=== PATIENT | female | born 1990 | race Caucasian/White ===

== ENCOUNTER 2016-11-05 16:05 | Emergency (ER) | payer OTHER ==
[2016-11-05 17:38] VITALS: BP 132/97
--- NOTE | 2016-11-05 18:16 | UC ---
Complaint Female HPI - HPI Summary HPI Summary: ONSET OF DYSURIA AND URINARY FREQUENCY YESTERDAY MORNING. ALSO HAS SLIGHT RIGHT SIDED BACK PAIN. NO FEVER. NO N/V. - History Of Current Complaint Chief Complaint: UCGU Stated Complaint: URINARY ISSUE Time Seen by Provider: 11/05/16 18:13 Hx Obtained From: Patient Hx Last Menstrual Period: 10 days ago Onset/Duration: Gradual Onset, Lasting Hours, Still Present Timing: Constant Severity Initially: Moderate Severity Currently: Moderate Pain Intensity: 5 Pain Scale Used: 0-10 Numeric Character: Burning Aggravating Factor(s): Urination Alleviating Factor(s): Nothing Associated Signs And Symptoms: Positive: Back Pain. Negative: Fever, Vaginal Bleeding/Discharge, Vaginal Discharge, Nausea, Vomiting(# Of Episodes =) - Allergies/Home Medications Allergies/Adverse Reactions: Allergies Allergy/AdvReac Type Severity Reaction Status Date / Time No Known Allergies Allergy Verified 11/05/16 17:39 PMH/Surg Hx/FS Hx/Imm Hx Endocrine History Of: Reports: Dyslipidemia Cardiovascular History Of: Reports: Cardiac Disorders - high cholesterol - Surgical History Surgical History: Yes Surgery Procedure, Year, and Place: CYST REMOVAL FROM HEAD 09/06/14 - Family History Known Family History: Negative: Hypertension - Social History Alcohol Use: None Substance Use Type: None Smoking Status (MU): Never Smoked Tobacco - Immunization History Most Recent Tetanus Shot: 2010 Review of Systems Constitutional: Negative Respiratory: Negative Cardiovascular: Negative Gastrointestinal: Negative Genitourinary: Dysuria, Frequency, Urgency All Other Systems Reviewed And Are Negative: Yes Physical Exam Triage Information Reviewed: Yes Appearance: Well-Appearing, No Pain Distress, Well-Nourished Vital Signs: Initial Vital Signs Temp 98.2 F 11/05/16 17:35 Pulse 105 11/05/16 17:35 Resp 18 11/05/16 17:35 BP 132/97 11/05/16 17:35 Pulse Ox 100 11/05/16 17:35 Vital Signs Reviewed: Yes Eyes: Positive: Conjunctiva Clear ENT: Positive: Hearing grossly normal Neck: Positive: Supple Respiratory: Positive: No respiratory distress, No accessory muscle use Cardiovascular: Positive: Pulses Normal Abdomen Description: Positive: Soft, Other: - SUPRAPUBIC TTP. Negative: CVA Tenderness (R), CVA Tenderness (L), Distended, Guarding Musculoskeletal: Positive: No Edema Neurological: Positive: Alert Psychological: Positive: Age Appropriate Behavior Diagnostics - Laboratory Diagnostic Studies Completed/Ordered: URINE DIP SP. GR. 1.010, 1+ LEUKS, TRACE BLOOD Complaint Female Dx - Differential Dx/Diagnosis Provider Diagnoses: UTI Discharge - Discharge Plan Condition: Stable Disposition: HOME Prescriptions: Sulfamethox/Trimethoprim DS* [Bactrim DS 800/160 TAB*] 1 tab PO BID #10 tab Patient Education Materials: Urinary Tract Infection in Women (ED) Referrals: Alen SIERRA,Jah Sanchez [Primary Care Provider] - If Needed
== END 2016-11-05 18:22 | disposition home or self-care (01) ==
LOC: UCEAST 16:05
DX: N39.0 Urinary tract infection, site not specified (principal); E78.5 Hyperlipidemia, unspecified
CPT/HCPCS: 81003; 87086; 99212; G0463

== ENCOUNTER 2016-12-28 09:04 | Emergency (ER) | payer OTHER ==
[2016-12-28 09:29] VITALS: BP 146/89
--- NOTE | 2016-12-28 10:43 | UC ---
Complaint Female HPI - HPI Summary HPI Summary: compalint of bilaeral flank pain that started 2 days ago painful urination for the last 3 days increase in frequncy and urgency of urination deneis fever and chills took some ibuprofen last night without relief took azo yesterday with some relief frequent UTI- everyother month kidney infection 1x year - History Of Current Complaint Chief Complaint: UCGU Stated Complaint: LOWER BACK PAIN Time Seen by Provider: 12/28/16 10:37 Hx Obtained From: Patient Hx Last Menstrual Period: - Allergies/Home Medications Allergies/Adverse Reactions: Allergies Allergy/AdvReac Type Severity Reaction Status Date / Time No Known Allergies Allergy Verified 11/05/16 17:39 PMH/Surg Hx/FS Hx/Imm Hx Previously Healthy: Yes Endocrine History Of: Reports: Dyslipidemia Denies: Diabetes, Thyroid Disease Cardiovascular History Of: Reports: Cardiac Disorders - high cholesterol Denies: Hypertension Respiratory History Of: Denies: COPD, Asthma GI/ History Of: Denies: Ulcer - Surgical History Surgical History: Yes Surgery Procedure, Year, and Place: CYST REMOVAL FROM HEAD 09/06/14 - Family History Known Family History: Negative: Cardiac Disease, Hypertension, Diabetes - Social History Occupation: Employed Full-time Alcohol Use: None Substance Use Type: None Smoking Status (MU): Never Smoked Tobacco - Immunization History Most Recent Tetanus Shot: 2010 Review of Systems Constitutional: Negative Skin: Negative Eyes: Negative ENT: Negative Respiratory: Negative Cardiovascular: Negative Gastrointestinal: Negative Genitourinary: Dysuria, Hematuria, Frequency, Urgency Motor: Negative Neurovascular: Negative Musculoskeletal: Negative Neurological: Negative Psychological: Negative All Other Systems Reviewed And Are Negative: Yes Physical Exam Triage Information Reviewed: Yes Appearance: No Pain Distress, Well-Nourished, Ill-Appearing Vital Signs: Initial Vital Signs Temp 98 F 12/28/16 09:27 Pulse 116 12/28/16 09:27 Resp 20 12/28/16 09:27 BP 146/89 12/28/16 09:27 Pulse Ox 100 12/28/16 09:27 Vital Signs Reviewed: Yes Eyes: Positive: Conjunctiva Clear ENT: Positive: Pharynx normal, TMs normal Dental Exam: Normal Neck: Positive: No Lymphadenopathy Respiratory: Positive: Lungs clear, Normal breath sounds, No respiratory distress Cardiovascular: Positive: RRR, No Murmur, Pulses Normal Abdomen Description: Positive: Nontender, No Organomegaly, Soft, CVA Tenderness (R). Negative: CVA Tenderness (L), Distended, Guarding Bowel Sounds: Positive: Present Musculoskeletal Exam: Normal Neurological Exam: Normal Psychological Exam: Normal Skin Exam: Normal Complaint Female Dx - Course Course Of Treatment: exam completed. will treat for UTI/pyleonephritis with urology followup. pt tachycardic but refuses IV hydration- needs to get home d/ t children. discussed at length signs and symptoms of when to seek emergent care if symptoms worsen, fever and possibility of kidney stones and pt states understanding - Differential Dx/Diagnosis Differential Diagnosis/HQI/PQRI: Ureteral Stone, Urinary Tract Infection, Other - pyleonephritis Provider Diagnoses: UTI. elevated blood pressure Discharge - Discharge Plan Condition: Stable Disposition: HOME Prescriptions: Ciprofloxacin TAB* [Cipro 500 MG TAB*] 500 mg PO BID #14 tab Phenazopyridine TAB* [Pyridium 100 mg TAB*] 100 mg PO TID #6 tab Patient Education Materials: Urinary Tract Infection in Women (ED), Kidney Infection (ED) Referrals: Alen SIERRA,Jah Sanchez [Primary Care Provider] - Silverio Covington MD [Medical Doctor] - Additional Instructions: Please start antibiotic and pyridium as directed Increase fluids and rest Take acetaminophen or ibuprofen for fever or pain Please call Urologist for further evaluation of frequent urinary tract infections Please review your discharge instructions. If your symptoms do not improve , you have an increase in pain or you develop a fever please go to the emergency room for further evaluation and treatment. Your blood pressure is elevated. Please contact your primary care provider within 1 -4 weeks for further evaluation.
== END 2016-12-28 10:56 | disposition home or self-care (01) ==
LOC: UCEAST 09:04
DX: N39.0 Urinary tract infection, site not specified (principal); B96.89 Other specified bacterial agents as the cause of diseases classified elsewhere; R03.0 Elevated blood-pressure reading, without diagnosis of hypertension
CPT/HCPCS: 81003; 84702; 87077; 87086; 87186; 99212; G0463

== ENCOUNTER 2018-09-10 07:14 | Day surgery (SDC) | payer OTHER ==
[~2018-09-10 07:14] MED LIST: Buffered Lidocaine 1% SYRIN* 1 ML/SYRINGE INTRADERM ONE; Dexamethasone IV* 4 MG/ML 1 ML (4 MG) IV SLOW PU ONE; Famotidine IV* 10 MG/ML 2 ML (20 mg) IV ONE; Lactated Ringers 1000 ML Bag* 1,000 ML IV SCH
[2018-09-10] MEDS ORDERED: Famotidine IV* 10 MG/ML 2 ML (20 mg) ONE (07:53)
[2018-09-10] MEDS ORDERED: ceFAZolin 2 GM PREMIX in ORs 2 GM/50 ML BAG IVPB ONE (07:54)
[2018-09-10] MEDS ORDERED: Dexamethasone IV* 4 MG/ML 1 ML (4 MG) ONE (07:54)
[2018-09-10] MEDS ORDERED: Rocuronium* 10 MG/ML VIAL ONE (08:09)
[2018-09-10] MEDS ORDERED: Midazolam* 1 MG/ML 2 ML VIAL (2 MG) ONE (08:09)
[2018-09-10] MEDS ORDERED: fentaNYL* 50 MCG/ML 5 ML VIAL (250 MCG VIAL) ONE (08:09)
[2018-09-10] MEDS ORDERED: Lidocaine 2% PF * 5 ML VIAL ONE (08:10)
[2018-09-10] MEDS ORDERED: Propofol* 10 MG/ML 20 ML BTL ONE ×2 (08:10→09:34)
[2018-09-10 08:42] LABS: Hematocrit 43 % (35-47); Hemoglobin 14.8 g/dl (12.0-16.0); Mean Corpuscular HGB Conc 34 g/dl (31-36); Mean Corpuscular Hemoglobin 31 pg (27-31); Mean Corpuscular Volume 89 fL (80-97); Mean Platelet Volume 7.6 fL (7.4-10.4); Platelet Count 175 10^3/ul (150-450); Red Cell Distribution Width 13 % (10.5-15)
[2018-09-10] MEDS ORDERED: Naloxone* 0.4 MG/ML 1 ML VIAL IV PRN (08:42)
[2018-09-10] MEDS ORDERED: fentaNYL* 50 MCG/ML 2 ML VIAL (100 MCG VIAL) IV PRN (08:42)
[2018-09-10] MEDS ORDERED: HYDROcodone/ACETAMIN 5-325 MG* 1 TAB PO PRN (08:42)
[2018-09-10] MEDS ORDERED: DiMENhydriNATE IV* 50 MG/ML VIAL IV PUSH PRN (08:42)
[2018-09-10] MEDS ORDERED: PROCHLORPERAZINE INJ 5 MG/ML 2 ML VIAL IV PRN (08:42)
[2018-09-10] MEDS ORDERED: Ketorolac INJ* 30 MG/ML 1 ML VIAL IV PRN (08:42)
[2018-09-10] MEDS ORDERED: Acetaminophen TAB* 325 MG PO PRN (08:42)
[2018-09-10] MEDS ORDERED: Bupivacaine 0.5% W/EPI SDV* 30 ML VIAL ONE (08:46)
[2018-09-10] MEDS ORDERED: Ondansetron INJ* 2 MG/ML VIAL ONE (09:57)
[2018-09-10] MEDS ORDERED: Ketorolac INJ* 30 MG/ML 1 ML VIAL ONE (10:28)
[2018-09-10 11:31] VITALS: BP 118/82
--- NOTE | 2018-09-10 12:05 | OP ---
CC: Dr. Whitt * DATE OF OPERATION: 09/10/18 - [facility] DATE OF : 88 SURGEON: Dr. Hemphill. CAN CLOSING MACHINE TENDER: Dr. Whitt. ANESTHESIOLOGIST: Dr. Cobb. ANESTHESIA: General endotracheal anesthesia. PRE-OP DIAGNOSIS: Multiparity, desires permanent sterilization. POST-OP DIAGNOSIS: Multiparity, desires permanent sterilization and including adhesions of omentum to the anterior abdominal wall. OPERATIVE PROCEDURE: ESTIMATED BLOOD LOSS: Minimal, less than 20 cc. URINE OUTPUT: 200 cc clear urine. FINDINGS: Midline uterus, normal appearing ovaries bilaterally, normal appearing fallopian tubes bilaterally, normal appearing appendix. There were adhesions of the omentum to the anterior abdominal wall low in the pelvis to the right fallopian tube and also to the anterior abdominal wall in the region of the umbilicus. Normal appearing liver edge. Those are the findings. COMPLICATIONS: None. COUNTS: Sponge, lap, and needle count were x2 and the patient was brought to recovery room, in stable condition. DESCRIPTION OF PROCEDURE: The patient was taken to the operating room. When general anesthesia was found to be adequate, the patient was prepped and draped in the usual sterile fashion in the dorsal supine position. A Velazquez catheter had been placed under sterile conditions. Time-out was performed. A 1 cm infraumbilical incision was made in the skin after Marcaine was instilled. The fascia was identified, grasped between 2 Casey clamps, and an incision was made. The fascia was tagged with a 0-Vicryl. The blunt trocar was placed. Correct placement was confirmed by the laparoscope. The abdomen was insufflated. A 5 mm skin incision was made in the previous Pfannenstiel skin incision in the midline and the 5 mm trocar was placed under direct visualization. The abdomen and pelvis were examined with the above findings noted. Dr. Whitt lysed the omental adhesions. Attention was then turned to the patient's right fallopian tube which was followed out to the fimbriated end and appeared normal. The fallopian tubes was cauterized in 4 separate locations with the Kleppinger cautery, watching the needle go down to zero. Attention was then turned to the patient's left fallopian tube which was carried out to the fimbriated end and cauterized in 4 separate locations, also watching the needle to see that the cautery went down to zero. The appendix was identified and examined and found to be normal. There was a thin adhesion to the appendix which was also lysed. The 5 mm trocar and sleeve were removed under direct visualization. The laparoscope was removed. The infraumbilical fascia was closed using 0 Vicryl. No defect was palpated. The skin was closed with 4-0 Vicryl and the Velazquez catheter was removed. Clear urine was noted. The patient was brought to recovery room. [id number]/[facility] #: [id number] MIRIAM
--- NOTE | 2018-09-10 12:16 | OP ---
CC: Barrington Hemphill MD * DATE OF OPERATION: 09/10/18 - [facility] DATE OF : 88 SURGEON: Thor Whitt MD CO-SURGEON: Dr. Hemphill. ANESTHESIOLOGIST: Dr. Cobb. ANESTHESIA: General endotracheal. PRE-OP DIAGNOSES: Multiparity and right lower quadrant pain. POST-OP DIAGNOSES: Multiparity and right lower quadrant pain and intraperitoneal adhesions. OPERATIVE PROCEDURE: Laparoscopic lysis of adhesions. ESTIMATED BLOOD LOSS: Minimal. IV FLUIDS: Crystalloid. SPECIMENS: None. DRAINS: None. COMPLICATIONS: None. COUNTS: Instrument, needle, and sponge counts were correct. INDICATIONS: The patient is a 28-year-old female who presented for elective sterilization and was taken to the operating room by Dr. Hemphill on 09/10/18. During the time of the laparoscopy, she was noted to have intraperitoneal adhesions in the right quadrant and to the anterior abdominal wall involving the omentum. I was asked to perform intraoperative lysis of adhesions. DESCRIPTION OF PROCEDURE: For the placement of the trocars, please refer to Dr. Hemphill's note. Inspection of the right lower quadrant revealed a tongue of omentum adherent into the area anterior to the right adnexa obscuring its view. A LigaSure was used to divide the adhesions and in addition, additional adhesion of omentum to the anterior abdominal wall at the umbilical site was also lysed. Due to the patient's history of right lower quadrant abdominal pain, inspection of the appendix and cecum were performed and this did appear normal, although there was a single band-like adhesion to the appendix, which was lysed sharply. Inspection also of the right upper quadrant was performed. The liver appeared to be mildly fatty infiltrated. The gallbladder appeared to be without any inflammatory changes or stones. No obvious gross pathology was noted in the large and small intestine. The patient was returned to the care of Dr. Hemphill and the remaining portion of the procedure and closure is dictated in her note. [id number]/[facility] #: [id number] MTDD
== END 2018-09-10 11:36 | disposition home or self-care (01) ==
LOC: OR 07:14
PROVIDERS: ATTEND Obstetrics & Gynecology
DX: Z30.2 Encounter for sterilization (principal); K66.0 Peritoneal adhesions (postprocedural) (postinfection); R10.2 Pelvic and perineal pain; N94.9 Unspecified condition associated with female genital organs and menstrual cycle; K21.9 Gastro-esophageal reflux disease without esophagitis; E78.5 Hyperlipidemia, unspecified
CPT/HCPCS: 36415; 81025; 85027; 86850; 86900; 86901; J0690; J1100; J1885; J2250; J2405; J2704; J3010

== ENCOUNTER → 2018-09-15 17:53 | Emergency (ER) | payer OTHER ==
[~2018-09-15 17:53] MED LIST changes: -Buffered Lidocaine 1% SYRIN* 1 ML/SYRINGE INTRADERM ONE; -Dexamethasone IV* 4 MG/ML 1 ML (4 MG) IV SLOW PU ONE; -Famotidine IV* 10 MG/ML 2 ML (20 mg) IV ONE; +Hydrocortisone SUPP* 25 MG SUPP (2.5%) PR ONE; -Lactated Ringers 1000 ML Bag* 1,000 ML IV SCH
--- OUTSIDE RECORDS SUMMARY | 2018-09-15 18:16 | XMS REPORT | Continuity of Care Document ---
:1990 External Reference #:[id number] Author Name Oanh Michelle Care Team Providers Name Role Phone Steffany Quiñones MD Primary Care Physician Unavailable Payers Type Date Identification Numbers Payment Provider Subscriber Policy Number: [id number] [employer] Yao Sheth PayID: [id number] [address] [place] [address] Expires: 2015 Policy Number: [id number] [employer] Jasmyne Goyal Group Number: [id number] [address] PayID: [id number] [place] [address] Advance Directives Description No Information Available Problems Date Description Provider Status Onset: 02/23/2017 Pure hypercholesterolemia Rene Rocha NP Active Family History Date Family Member(s) Problem(s) Comments Father Heart valve issues, pacemaker Mother Bladder Cancer Mother Hypercholesterolemia Siblings 2 2 Borthers; one quadraplegic s/p MVA First Brother quadriplegic Maternal Grandmother Cancer Social History Type Date Description Comments Sex Unknown Marital Status Significant Other Lives With Boyfriend Lives With Children Occupation [employer] ETOH Use Denies alcohol use Tobacco Use Start: Unknown Patient has never smoked Recreational Drug Use Denies Drug Use Smoking Status Reviewed: 08/26/18 Patient has never smoked Exercise Type/Frequency Exercises sporadically Allergies, Adverse Reactions, Alerts Date Description Reaction Status Severity Comments 02/20/2017 Sulfamethoxazole / Nausea and Vomiting Active Moderate Trimethoprim 09/17/2012 NKDA Inactive Medications Medication Date Status Form Strength Qnty SIG Indications Ordering Provider Fluconazole 08/26/ Active Tablets 150mg 5tabs one tablet B37.3 Dvorah 2019 by vivian Hemphill MD every other day, then one tablet per week Alyacen 07/20/ Active Tablets 1-35mg-mcg 28tabs Take 1 Rene 2018 Tablet By WILMA Rocha Mouth Every Day Coq10 05/14/ Active Capsules 50mg 1 by mouth Cori 2018 every day Reanna N.P. Rosuvastatin 07/28/ Active Tablets 20mg 30tabs Take 1 Rene Calcium 2017 Tablet By WILMA Rocha Mouth Daily Omeprazole 07/23/ Active Capsules 20mg 30caps Take One R07.[address] Capsule By WILMA Rocha Mouth Every Day Vascepa 02/20/ Active Capsules 1gm 120cap take 2 Rene 2017 s capsules WILMA Rocha by mouth twice a day Oralone 02/20/ Active Paste 0.1% 5gm Thin layer K12.0 Rene 2016 of paste WILMA Rocha to affected areas 2-4 times daily Fluconazole 07/12/ Hx Tablets 150mg 2tabs one by Rene 2017 - mouth december WILMA Rocha 07/19/ repeat in 2017 3 days as needed Ortho-Novum 02/04/ Hx Tablets 1-35mg-mcg 28tabs Take 1 Rene (28) 2017 - Tablet By WILMA Rocha 07/20/ Mouth 2018 Every Day Fluconazole 11/11/ Hx Tablets 150mg 2tabs one by Rene 2017 - mouth december WILMA Rocha 11/18/ repeat in 2017 3 days as needed Gemfibrozil 07/28/ Hx Tablets 600mg 60tabs take 1 Rene 2016 - tablet by WILMA Rocha 07/30/ mouth two 2017 times daily Rosuvastatin 02/20/ Hx Tablets 40mg 30tabs take 1 Rene Calcium 2016 - tablet by WILMA Rocha 07/28/ mouth at 2017 bedtime 00/ Hx Unknown Vitamin 0000 - 2016 Cyclafem 35 / Hx Tablets 1-35mg-mcg 28tabs take 1 Rene 0000 - tablet by WILMA Rocha 02/04/ mouth 2018 every day Immunizations Description No Information Available Vital Signs Date Vital Result Comment 08/26/2018 3:35pm Height 65 inches 5'5" Weight 170.00 lb Heart Rate 98 /min BP Systolic 138 mmHg BP Diastolic 90 mmHg O2 % BldC Oximetry 98 % BMI (Body Mass Index) 28.3 kg/m2 Last Menstrual Period [id number] 06/07/2018 9:54am Height 65 inches 5'5" Weight 164.00 lb Heart Rate 84 /min BP Systolic 129 mmHg BP Diastolic 80 mmHg Body Temperature 97.9 F O2 % BldC Oximetry 99 % BMI (Body Mass Index) 27.3 kg/m2 05/14/2018 3:03pm Height 65 inches 5'5" Weight 166.00 lb Heart Rate 89 /min BP Systolic 102 mmHg BP Diastolic 64 mmHg Body Temperature 97.9 F O2 % BldC Oximetry 99 % BMI (Body Mass Index) 27.6 kg/m2 07/23/2017 10:27am Height 65 inches 5'5" Weight 171.00 lb Heart Rate 91 /min BP Systolic Sitting 112 mmHg BP Diastolic Sitting 74 mmHg Body Temperature 98.1 F O2 % BldC Oximetry 98 % BMI (Body Mass Index) 28.5 kg/m2 02/20/2017 11:39am Height 65 inches 5'5" Weight 174.00 lb Heart Rate 100 /min BP Systolic Sitting 118 mmHg BP Diastolic Sitting 86 mmHg O2 % BldC Oximetry 98 % BMI (Body Mass Index) 29.0 kg/m2 09/17/2012 9:59am Heart Rate 102 /min BP Systolic Sitting 130 mmHg BP Diastolic Sitting 78 mmHg Respiratory Rate 16 /min Results Test Date Facility Test Result H/L Range Note Laboratory test 08/26/2018 [facility] Cytology <pending> finding [address] [place] [address] [phone] Laboratory test 08/26/2018 [facility] Gardnerella/Yea <pending> finding [address]: [place] [address] [phone] Laboratory test 08/26/2018 [facility] Test negative finding Urine Laboratory test 05/14/2018 [facility] Vitamin B12 329 pg/mL N 180-[address] [place] [address] [phone] TSH (Thyroid Stim Horm) 0.84 mcIU/mL N 0.34-5.60 Magnesium 2.0 mg/dL N 1.9-2.7 Lipid Profile 11/06/2017 [facility] Triglycerides 623 mg/dL 2 (Trig/Chol/HDL) [address] [place] [address] [phone] Cholesterol 205 mg/dL 3 HDL Cholesterol 39.5 mg/dL 4 LDL Cholesterol (SEE NOTE) mg/dL 5 Liver Function 11/06/2017 [facility] Total Protein 6.7 g/dL N 6.4-8.9 Panel [address] [place] [address] [phone] Albumin 4.4 g/dL N 3.2-5.2 Globulin 2.3 g/dL N 2-4 Albumin/Globulin Ratio 1.9 N 1-3 Total Bilirubin 0.40 mg/dL N 0.2-1.0 Direct Bilirubin 0.00 mg/dL Low 0.03-0.18 Alkaline Phosphatase 48 U/L N 34-104 Alt 27 U/L N 7-52 Ast 24 U/L N 13-39 Laboratory test 11/06/2017 [facility] LDL Cholesterol 67 mg/dL 6 finding [address] [place] [address] [phone] Lipid Profile 07/24/2017 [facility] Triglycerides 359 mg/dL 7 (Trig/Chol/HDL) [address] [place] [address] [phone] Cholesterol 134 mg/dL 8 HDL Cholesterol 38.3 mg/dL 9 LDL Cholesterol 24 mg/dL 10 Laboratory test 07/24/2017 [facility] Troponin-I (TnI) 0.00 ng/ mL <0.04 11 finding [address] [place] [address] [phone] TSH (Thyroid Stim Horm) 1.94 mcIU/mL N 0.34-5.60 12 Comp Metabolic Panel 07/24/2017 [facility] Sodium 139 mmol/L N 133-145 [address] [place] [address] [phone] Chloride 104 mmol/L N 101-111 Co2 Carbon Dioxide 23 mmol/L N 22-32 Glucose 92 mg/dL N 70-100 Blood Urea Nitrogen 12 mg/dL N 6-24 Creatinine 0.72 mg/dL N 0.51-0.95 BUN/Creatinine Ratio 16.7 N 8-20 Calcium 9.1 mg/dL N 8.6-10.3 Total Protein 6.9 g/dL N 6.4-8.9 Albumin 4.4 g/dL N 3.2-5.2 Globulin 2.5 g/dL N 2-4 Albumin/Globulin Ratio 1.8 N 1-3 Total Bilirubin 0.60 mg/dL N 0.2-1.0 Alkaline Phosphatase 37 U/L N 34-104 Alt 22 U/L N 7-52 Egfr Non- 97.2 >60 Egfr 125.0 >60 13 Potassium TNP mmol/L 3.5-5.0 14 Anion Gap 12 mmol/L High 2-11 Ast TNP U/L 13-39 15 CBC Auto Diff 07/24/2017 [facility] White Blood 4.5 10^3/uL N 3.5-10.[address] [place] [address] [phone] Red Blood Count 4.61 10^6/uL N 4.0-5.4 Hemoglobin 14.1 g/dL N 12.0-16.0 Hematocrit 42 % N 35-47 Mean Corpuscular Volume 90 fL N 80-97 Mean Corpuscular Hemoglobin 31 pg N 27-31 Mean Corpuscular HGB Conc 34 g/dL N 31-36 Red Cell Distribution Width 13 % N 10.5-15 Platelet Count 174 10^3/uL N 150-450 Mean Platelet Volume 9 um3 N 7.4-10.4 Abs Neutrophils 2.5 10^3/uL N 1.5-7.7 Abs Lymphocytes 1.5 10^3/uL N 1.0-4.8 Abs Monocytes 0.4 10^3/uL N 0-0.8 Abs Eosinophils 0 10^3/uL N 0-0.6 Abs Basophils 0 10^3/uL N 0-0.2 Abs Nucleated RBC 0.01 10^3/uL Granulocyte % 55.4 % N 38-83 Lymphocyte % 34.4 % N 25-47 Monocyte % 8.7 % N 1-9 Eosinophil % 0.8 % N 0-6 Basophil % 0.7 % N 0-2 Nucleated Red Blood Cells % 0.1 Laboratory test 06/02/2017 [facility] LDL Cholesterol 26 mg/dL N [address] [place] [address] [phone] Lipid Profile 03/02/2017 [facility] Triglycerides 675 mg/dL N 17 (Trig/Chol/HDL) [address] [place] [address] [phone] Cholesterol 187 mg/dL N 18 HDL Cholesterol 33.9 mg/dL N 19 LDL Cholesterol (SEE NOTE) mg/dL N 20 Comp Metabolic Panel 03/02/2017 [facility] Sodium 134 mmol/L N 133-[address] [place] [address] [phone] Potassium 4.2 mmol/L N 3.5-5.0 Chloride 100 mmol/L Low 101-111 Co2 Carbon Dioxide 26 mmol/L N 22-32 Anion Gap 8 mmol/L N 2-11 Glucose 95 mg/dL N 70-100 Blood Urea Nitrogen 10 mg/dL N 6-24 Creatinine 0.67 mg/dL N 0.51-0.95 BUN/Creatinine Ratio 14.9 N 8-20 Calcium 9.1 mg/dL N 8.6-10.3 Total Protein 6.7 g/dL N 6.4-8.9 Albumin 4.1 g/dL N 3.2-5.2 Globulin 2.6 g/dL N 2-4 Albumin/Globulin Ratio 1.6 N 1-3 Total Bilirubin 0.70 mg/dL N 0.2-1.0 Alkaline Phosphatase 41 U/L N 34-104 Alt 28 U/L N 7-52 Ast 25 U/L N 13-39 Egfr Non- 105.6 N >60 Egfr 135.8 N >60 21 Laboratory test 03/02/2017 [facility] LDL Cholesterol 47 mg/dL N [address] [place] [address] [phone] 1 Normal Range 180 to 914 Indeterminate Range 145 to 180 Deficient Range <145 2 Desirable: <150 Borderline High: 150-199 High: 200-499 Very High: >500 3 Desirable: <200 Borderline High: 200-239 High: >239 4 Low: <40 Desirable: 40-60 High: >60 5 Unable to calculate LDL as triglyceride is > 400 6 Desirable: <100 Near Optimal: 100-129 Borderline High: 130-159 High: 160-189 Very High: >189 7 Desirable: <150 Borderline High: 150-199 High: 200-499 Very High: >500 8 Desirable: <200 Borderline High: 200-239 High: >239 9 Low: <40 Desirable: 40-60 High: >60 10 Desirable: <100 Near Optimal: 100-129 Borderline High: 130-159 High: 160-189 Very High: >189 11 FASTING 10 HOUR 12 FASTING 10 HOUR 13 Because ethnic data is not always readily available, this report includes an eGFR for both -Americans and non- Americans. The National Kidney Disease Education Program (NKDEP) does not endorse the use of the MDRD equation for patients that are not between the ages of 18 and 70, are , have extremes of body size, muscle mass, or nutritional status, or are non- or non-. According to the National Kidney Foundation, irrespective of diagnosis, the stage of the disease is based on the level of kidney function: Stage Description GFR(mL/min/1.73 m(2)) 1 Kidney damage with normal or decreased GFR 90 2 Kidney damage with mild decrease in GFR 60-89 3 Moderate decrease in GFR 30-59 4 Severe decrease in GFR 15-29 5 Kidney failure <15 (or dialysis) 14 Specimen Hemolyzed. Result may not be valid. Unable to report test result due to hemolysis. 15 Unable to report test result due to hemolysis. 16 Desirable: <100 Near Optimal: 100-129 Borderline High: 130-159 High: 160-189 Very High: >189 17 Desirable <150 Borderline high 150-199 High 200-499 Very High >500 18 Desirable <200 Borderline high 200-239 High >239 19 Low <40 Desirable: 40-60 High: >60 20 Unable to calculate LDL as triglyceride is > 400 21 Because ethnic data is not always readily available, this report includes an eGFR for both -Americans and non- Americans. The National Kidney Disease Education Program (NKDEP) does not endorse the use of the MDRD equation for patients that are not between the ages of 18 and 70, are , have extremes of body size, muscle mass, or nutritional status, or are non- or non-. According to the National Kidney Foundation, irrespective of diagnosis, the stage of the disease is based on the level of kidney function: Stage Description GFR(mL/min/1.73 m(2)) 1 Kidney damage with normal or decreased GFR 90 2 Kidney damage with mild decrease in GFR 60-89 3 Moderate decrease in GFR 30-59 4 Severe decrease in GFR 15-29 5 Kidney failure <15 (or dialysis) 22 Desirable: <100 mg/dL Near Optimal: 100-129 mg/dL Borderline High: 130-159 mg/dL High: 160-189 mg/dL Very High: >189 mg/dL Procedures Description No Information Available Encounters Type Date Location Provider Dx Diagnosis Office Visit 06/07/2018 [facility] Cori Ottonilesh, G43.909 Migraine, unsp , not 10:00a Medicine - N.P. intractable, [place] without status migrainosus N77.1 Vaginitis, vulvitis and vulvovaginitis in dis classd elswhr Office Visit 05/14/2018 3:00p [facility] Cori Reanna, G43.909 Migraine, unsp, Medicine - N.P. not intractable, [place] without status migrainosus Office Visit 07/23/2017 10:20a [facility] Rene Rocha NP R07.89 Other chest pain Medicine Brendan Z13.220 Encounter for screening for lipoid disorders Office Visit 02/20/2017 [facility] Rene E78.00 Pure hypercholesterolemia, 11:00a Amberly Rocha NP unspecified [place] K12.0 Recurrent oral aphthae Office Visit 09/17/2012 10:00a [facility]ly Ly, 784.0 [facility] Kush V22.2 State Incidental Normal Plan of Treatment Future Appointment(s):09/17/2018 4:00 pm - Bar[place] Hemphill MD at [facility]08/26/2018 - [place] Hemphill MDZ01.411 Encounter for gynecological examination (general) (routine)Comments:Pap sentFollow up:Will call service desk agent to schedule Laparoscopic tubal gjxygiceL39.3 Candidiasis of vulva and vaginaNew Medication:Fluconazole 150 mg - one tablet by mouth every other day, then one tablet per weekNew Labs:HCG , Ordered: 08/26/18TSH (Thyroid Stim Horm) , Ordered: 08/26/18Hemoglobin A1c (Glyco HGB), Ordered: 08/26/18Comments:Affirm sentR10.2 Pelvic and perineal painFollow up:Please schedule f/u appt after sonogram
[2018-09-15 19:51] LABS: ABS Basophils 0.1 10^3/ul (0-0.2); ABS Eosinophils 0.1 10^3/ul (0-0.6); ABS Lymphocytes 1.6 10^3/ul (1.0-4.8); ABS Monocytes 0.7 10^3/ul (0-0.8); ABS Neutrophils 6.1 10^3/ul (1.5-7.7); ABS Nucleated RBC 0 10^3/ul; Eosinophil % 0.9 %; Hematocrit 45 % (35-47); Hemoglobin 15.8 g/dl (12.0-16.0); Lymphocyte % 19.2 %; Mean Corpuscular HGB Conc 35 g/dl (31-36); Mean Corpuscular Hemoglobin 31 pg (27-31); Mean Corpuscular Volume 89 fL (80-97); Mean Platelet Volume 7.5 fL (7.4-10.4); Nucleated Red Blood Cells % 0.1; Platelet Count 202 10^3/ul (150-450); Red Blood Count 5.12 10^6/ul (4.00-5.40); Red Cell Distribution Width 13 % (10.5-15); White Blood Count 8.5 10^3/ul (3.5-10.8)
--- NOTE | 2018-09-15 19:58 | ED ---
GI/ HPI - HPI Summary HPI Summary: This patient is a 28 year old F presenting to [facility] accompanied by family with a chief complaint of hematochezia that occurred once prior to arrival. The patient rates the pain 5/10 in severity. Symptoms aggravated by nothing. Symptoms alleviated by nothing. Patient denies nausea, vomiting, and fever. Patient states she had a bilateral laparoscopic tubal ligation on 09/10/2017. - History of Current Complaint Chief Complaint: EDGIBleed Time Seen by Provider: 09/15/18 19:39 Stated Complaint: BLOOD IN STOOL Hx Obtained From: Patient Hx Last Menstrual Period: Onset/Duration: Started Hours Ago, Atraumatic, Still Present Timing: Constant Severity: Moderate Current Severity: Moderate Pain Intensity: 5 Location of Pain: Rectal Associated Signs and Symptoms: Positive: Other: - Negative nausea, vomiting, and fever Aggravating Factor(s): Nothing Alleviating Factor(s): Nothing - Allergy/Home Medications Allergies/Adverse Reactions: Allergies Allergy/AdvReac Type Severity Reaction Status Date / Time sulfamethoxazole Allergy Mild SEVERE Verified 09/10/18 08:03 [From Bactrim] HEADACHES trimethoprim [From Bactrim] Allergy Mild SEVERE Verified 09/10/18 08:03 HEADACHES BANDAIDS Allergy Itching Uncoded 09/10/18 08:03 POWDER IN LATEX Allergy Itching Uncoded 09/10/18 08:03 PMH/Surg Hx/FS Hx/Imm Hx Previously Healthy: No Endocrine/Hematology History: Reports: Hx Diabetes - GESTATIONAL- 6 YEARS AGO Denies: Hx Thyroid Disease Cardiovascular History: Denies: Hx Hypertension, Hx Pacemaker/ICD Respiratory History: Denies: Hx Asthma, Hx Chronic Obstructive Pulmonary Disease (COPD) GI History: Denies: Hx Ulcer Sensory History: Denies: Hx Contacts or Glasses, Hx Hearing Aid Opthamlomology History: Denies: Hx Contacts or Glasses Neurological History: Reports: Hx Migraine - HX OF - TREATS WITH EXCEDRIN Psychiatric History: Denies: Hx Panic Disorder - Surgical History Surgery Procedure, Year, and Place: CYST REMOVAL FROM HEAD 09/06/14. C SECTION 2013. T&A Hx Anesthesia Reactions: No Infectious Disease History: No Infectious Disease History: Denies: Hx Clostridium Difficile, Hx Hepatitis, Hx Human Immunodeficiency Virus (HIV), Hx of Known/Suspected MRSA, Hx Shingles, Hx Tuberculosis, Hx Known/ Suspected VRE, Hx Known/Suspected VRSA, History Other Infectious Disease, Traveled Outside the [place] in Last 30 Days - Family History Known Family History: Negative: Cardiac Disease, Hypertension, Diabetes - Social History Occupation: Employed Full-time Lives: With Family Alcohol Use: None Hx Substance Use: No Substance Use Type: Reports: None Hx Tobacco Use: No Smoking Status (MU): Never Smoked Tobacco Review of Systems Negative: Fever Positive: Other - Positive hematochezia. Negative: Vomiting, Nausea All Other Systems Reviewed And Are Negative: Yes Physical Exam - Summary Physical Exam Summary: VITAL SIGNS: Reviewed. GENERAL: Patient is a well-developed and nourished female who is lying comfortable in the stretcher. Patient is not in any acute respiratory distress. HEAD AND FACE: No signs of trauma. No ecchymosis, hematomas or skull depressions. No sinus tenderness. EYES: PERRLA, EOMI x 2, No injected conjunctiva, no nystagmus. EARS: Hearing grossly intact. Ear canals and tympanic membranes are within normal limits. MOUTH: Oropharynx within normal limits. NECK: Supple, trachea is midline, no adenopathy, no JVD, no carotid bruit, no c- spine tenderness, neck with full ROM. CHEST: Symmetric, no tenderness at palpation LUNGS: Clear to auscultation bilaterally. No wheezing or crackles. CVS: Regular rate and rhythm, S1 and S2 present, no murmurs or gallops appreciated. ABDOMEN: Soft, non-tender. No signs of distention. No rebound no guarding, and no masses palpated. Bowel sounds are normal. EXTREMITIES: FROM in all major joints, no edema, no cyanosis or clubbing. RECTAL EXAM: Female RN present. Extensive external hemorrhoids. No masses, rectal is empty. NEURO: Alert and oriented x 3. No acute neurological deficits. Speech is normal and follows commands. SKIN: Dry and warm Triage Information Reviewed: Yes Vital Signs On Initial Exam: Initial Vitals Temp Pulse Resp BP Pulse Ox 98.4 F 116 20 145/104 99 09/15/18 18:04 09/15/18 18:04 09/15/18 18:04 09/15/18 18:04 09/15/18 18:04 Vital Signs Reviewed: Yes Diagnostics - Vital Signs Vital Signs Temp Pulse Resp BP Pulse Ox 09/15/18 18:04 98.4 F 116 20 145/104 99 - Laboratory Lab Results: Lab Results 09/15/18 09/15/18 Range/Units 19:40 19:41 WBC 8.5 (3.5-10.8) 10^3/ul RBC 5.12 (4.00-5.40) 10^6/ul Hgb 15.8 (12.0-16.0) g/dl Hct 45 (35-47) % MCV 89 (80-97) fL MCH 31 (27-31) pg MCHC 35 (31-36) g/dl RDW 13 (10.5-15) % Plt Count 202 (150-450) 10^3/ul MPV 7.5 (7.4-10.4) fL Neut % (Auto) 71.5 % Lymph % (Auto) 19.2 % Imperial % (Auto) 7.8 % Eos % (Auto) 0.9 % Baso % (Auto) 0.6 % Absolute Neuts (auto) 6.1 (1.5-7.7) 10^3/ul Absolute Lymphs (auto) 1.6 (1.0-4.8) 10^3/ul Absolute Monos (auto) 0.7 (0-0.8) 10^3/ul Absolute Eos (auto) 0.1 (0-0.6) 10^3/ul Absolute Basos (auto) 0.1 (0-0.2) 10^3/ul Absolute Nucleated RBC 0 10^3/ul Nucleated RBC % 0.1 Blood Type Pending Antibody Screen Pending Result Diagrams: 09/15/18 19:41 09/15/18 19:40 Lab Statement: Any lab studies that have been ordered have been reviewed, and results considered in the medical decision making process. GIGU Course/Dx - Course Course Of Treatment: This patient is a 28 year old F presenting to [facility] accompanied by family with a chief complaint of hematochezia that occurred once prior to arrival. Physical Exam Findings: Extensive external hemorrhoids. Rectal : Female RN, no masses, rectal is empty. Bloodwork obtained. In the ED course the patient was given hydrocortisone suppository. Patient will be discharged with follow up from surgery. The patient is agreeable with this plan. - Diagnoses Provider Diagnoses: Hemorrhoid Discharge - Sign-Out/Discharge Documenting (check all that apply): Patient Departure - Discharge home Patient Received Moderate/Deep Sedation with Procedure: No - Discharge Plan Condition: Stable Disposition: HOME Prescriptions: Hydrocortisone SUPP* [Anusol HC Supp*] 25 mg AR BID #7 supp Patient Education Materials: Hemorrhoids (ED) Referrals: Rene Rocha NP [Primary Care Provider] - 2 Days Feliciano Reyes MD [Medical Doctor] - 2 Days Additional Instructions: RETURN TO THE EMERGENCY DEPARTMENT FOR NEW OR WORSENING SYMPTOMS - Attestation Statements Document Initiated by Scribe: Yes Documenting Scribe: Karin Ramirez Provider For Whom Scribe is Documenting (Include Credential): Dr. Luiz Garza MD Scribe Attestation: IKarin, scribed for Dr. Luiz Garza MD on 09/15/18 at 2016. Status of Scribe Document: Ready
[2018-09-15 20:01] LABS: Activated Partial Thrombo Time 28.4 seconds (26.0-36.3); INR 0.82 (0.77-1.02)
[2018-09-15 20:08] LABS: Albumin 5.4 g/dL (3.2-5.2); Albumin/Globulin Ratio 1.6 (1-3); BUN/Creatinine Ratio 22.2 (8-20); Calcium 10.6 mg/dL (8.6-10.3); EGFR African American 101.2 (>60); EGFR Non-African American 83.6 (>60); Globulin 3.3 g/dL (2-4); Potassium 4.6 mmol/L (3.5-5.0); Total Bilirubin 0.5 mg/dL (0.2-1.0); Total Protein 8.7 g/dL (6.4-8.9)
[2018-09-15 21:39] VITALS: BP 131/68
== END | disposition home or self-care (01) ==
LOC: ED 17:53
DX: K64.4 Residual hemorrhoidal skin tags (principal); Z88.2 Allergy status to sulfonamides; Z91.048 Other nonmedicinal substance allergy status
CPT/HCPCS: 36415; 80053; 85025; 85610; 85730; 86850; 86900; 86901; 99282; A9270-GY

== ENCOUNTER 2019-05-16 15:12 | Emergency (ER) | payer OTHER ==
--- OUTSIDE RECORDS SUMMARY | 2019-05-16 15:17 | XMS REPORT | Continuity of Care Document ---
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 Medicine Problems Active Problems Provider Date Pure hypercholesterolemia Rene Rocha NP Onset: 02/23/2017 Social History Type Date Description Comments Sex Unknown ETOH Use Denies alcohol use Tobacco Use Start: Unknown Patient has never smoked Recreational Drug Use Denies Drug Use Smoking Status Reviewed: 05/02/19 Patient has never smoked Exercise Type/Frequency Exercises sporadically Allergies, Adverse Reactions, Alerts Active Allergies Reaction Severity Comments Date Sulfamethoxazole / Trimethoprim Nausea and Vomiting Moderate 02/20/2017 Inactive Allergies NKDA 09/17/2012 Medications Active Medications SIG Qnty Indications Ordering Date Provider Terconazole apply 1 applicator 90gm N76.0 Katherine Angelica, 05/02/2019 0.4% vaginally before [employer]AL-Cde Cream bed x 7 days and apply topically as needed Omeprazole 1 by mouth every 30caps R07.89 Rene Rocha NP 04/10/2019 40mg day Capsules Rosuvastatin Calcium 1 by mouth every 30tabs Rene Rocha NP 03/13/2019 day 20mg Tablets Fluconazole one tablet by 2tabs Barrington Hemphill, 12/20/2018 150mg mouth every other MD Tablets day x 2 days Coq10 1 by mouth every Cori Varnilesh, 05/14/2018 50mg Capsules day N.P. Vascepa Take 2 Capsules By 120caps Rene Rocha NP 02/20/2017 1gm Capsules Mouth Twice A Day Oralone thin layer of 10gm K12.0 Rene Rocha NP 02/20/2017 0.1% Paste paste to affected areas 2-4 times daily History Medications Terconazole apply 1 applicator 90gm Katherine Dominguez, 02/02/2019 - 0.4% Cream vaginally before [employer]INC[employer]AL-Cde 05/02/2019 bed x 7 days and apply topically as needed Rosuvastatin Calcium 1 by mouth every 30tabs Rene Rocha NP 12/03/2018 - day 03/13/2019 10mg Tablets Immunizations Description No Information Available Vital Signs Date Vital Result Comment 05/02/2019 4:36pm Height 65 inches 5'5" Weight 175.00 lb Heart Rate 104 /min BP Systolic Sitting 127 mmHg BP Diastolic Sitting 91 mmHg O2 % BldC Oximetry 99 % BMI (Body Mass Index) 29.1 kg/m2 12/03/2018 4:33pm Height 65 inches 5'5" Weight 172.38 lb Heart Rate 85 /min BP Systolic 124 mmHg BP Diastolic 81 mmHg Body Temperature 98.8 F O2 % BldC Oximetry 98 % BMI (Body Mass Index) 28.7 kg/m2 Results Test Date Facility Test Result H/L Range Note Lipid Profile 03/10/2019 [facility] Cholesterol 243 mg/dL 1 (Trig/Chol/HDL) [address] [place] [address] [phone] HDL Cholesterol 32.9 mg/dL 2 Triglycerides 1293 mg/dL 3 LDL Cholesterol (SEE NOTE) mg/dL 4 Liver Function 03/10/2019 [facility] Total Protein 6.9 g/dL Normal 6.4-8.9 Panel [address] [place] [address] [phone] Albumin 4.8 g/dL Normal 3.2-5.2 Globulin 2.1 g/dL Normal 2-4 Albumin/Globulin Ratio 2.3 Normal 1-3 Total Bilirubin 0.60 mg/dL Normal 0.2-1.0 Direct Bilirubin 0.10 mg/dL Normal 0.03-0.18 Indirect Bilirubin 0.5 mg/dL Normal 0.3-1.0 Alkaline Phosphatase 65 U/L Normal 34-104 Alt 23 U/L Normal 7-52 Ast 19 U/L Normal 13-39 Laboratory test 03/10/2019 [facility] LDL Cholesterol 49 mg/dL 5 finding [address] [place] [address] [phone] Lipid Profile 11/26/2018 [facility] Triglycerides 196 mg/dL 6 (Trig/Chol/HDL) [address] [place] [address] [phone] Cholesterol 138 mg/dL 7 HDL Cholesterol 39.8 mg/dL 8 LDL Cholesterol 59 mg/dL 9 Laboratory test 11/26/2018 [facility] Glucose 103 mg/dL High 70-[address] [place] [address] [phone] 1 Desirable: <200 Borderline High: 200-239 High: >239 2 Low: <40 Desirable: 40-60 High: >60 3 Desirable: <150 Borderline High: 150-199 High: 200-499 Very High: >500 4 Unable to calculate LDL as triglyceride is > 400 5 Desirable: <100 Near Optimal: 100-129 Borderline High: 130-159 High: 160-189 Very High: >189 6 Desirable: <150 Borderline High: 150-199 High: 200-499 Very High: >500 7 Desirable: <200 Borderline High: 200-239 High: >239 8 Low: <40 Desirable: 40-60 High: >60 9 Desirable: <100 Near Optimal: 100-129 Borderline High: 130-159 High: 160-189 Very High: >189 Procedures Description No Information Available Medical Devices Description No Information Available Encounters Type Date Location Provider Dx Diagnosis Office Visit 12/03/2018 [facility] Internal Rene Rocha NP E78.00 Pure 4:20p Medicine - [facility] hypercholesterolemia , unspecified K21.9 Gastro-esophageal reflux disease without esophagitis Assessments Date Code Description Provider 05/02/2019 N76.0 Acute vaginitis Catrachito Grewal 12/03/2018 E78.00 Pure hypercholesterolemia, unspecified Rene Rocha NP 12/03/2018 K21.9 Gastro-esophageal reflux disease without Rene Rocha NP esophagitis Plan of Treatment Future Appointment(s):11/07/2019 3:00 pm - [facility] BERNARDO Grewal-CdeN76.0 Acute vaginitisNew Medication:Terconazole 0.4 % - apply 1 applicator vaginally before bed x 7 days and apply topically as neededNew Labs:Gardnerella/Yeast: Vaginal Dna, Ordered: 05/02/19Comments:Consider AZO yeast daily treatment to prevent recurrancesCall if you decide you want weekly preventative treatment Functional Status Description No Information Available Mental Status Description No Information Available Referrals Description No Information Available
[2019-05-16 15:18] VITALS: BP 130/90
--- NOTE | 2019-05-16 15:29 | UC ---
Complaint Female HPI - HPI Summary HPI Summary: 28 y/o female presents to the urgent care c/o frequent and burning on urination since yesterday. This morning her frequency on urination increased associated w/ mild lower back pain and pelvic pain. Pain os urination is 2/10 and she hasn' t taken anything to alleviate symptoms. pt reports she has PMHX of recurrent UTI and urethral stricture and is being managed by Urologist Dr Rodriguez. Pt denies fever,flank pain, abdominal pain, vaginal discharge, GOULD, dizziness, N/V/ D. Hx of STD's or hematuria. She requests antibiotic treatment since if she allows symptoms to worsen, she will develop hematuria. LMP: 05/09/2019 w/ regular menstrual cycles. - History Of Current Complaint Chief Complaint: UCGU Stated Complaint: BURNING URINATION Time Seen by Provider: 05/16/19 15:29 Hx Obtained From: Patient Hx Last Menstrual Period: 2 wks ago Onset/Duration: Gradual Onset, Lasting Days - 2 days, Still Present, Worse Since - this morning w/ a lot of frequency on urination Timing: Intermittent, Lasting Seconds Severity Initially: Mild Severity Currently: Mild Pain Intensity: 4 - pelvic and lower back pain on urianation Pain Scale Used: 0-10 Numeric Character: Burning Aggravating Factor(s): Urination Alleviating Factor(s): Nothing Associated Signs And Symptoms: Positive: Back Pain - lower back pain. Negative : Fever, Vaginal Discharge, Nausea, Vomiting(# Of Episodes =), Genital Swelling Related Hx: Similar Episode/Dx as: - recurrent UTI - Risk Factors Ectopic Risk Factor: Negative Ovarian Torsion Risk Factor: Negative - Allergies/Home Medications Allergies/Adverse Reactions: Allergies Allergy/AdvReac Type Severity Reaction Status Date / Time sulfamethoxazole Allergy Mild SEVERE Verified 05/16/19 15:18 [From Bactrim] HEADACHES trimethoprim [From Bactrim] Allergy Mild SEVERE Verified 05/16/19 15:18 HEADACHES BANDAIDS Allergy Itching Uncoded 05/16/19 15:18 POWDER IN LATEX Allergy Itching Uncoded 05/16/19 15:18 PMH/Surg Hx/FS Hx/Imm Hx Previously Healthy: Yes Endocrine History: Dyslipidemia Other GI/ History: Recurrent UTI - Surgical History Surgical History: Yes Surgery Procedure, Year, and Place: CYST REMOVAL FROM HEAD 09/06/14. C SECTION 2012. T&A - Family History Known Family History: Positive: Hypertension Negative: Cardiac Disease, Diabetes Family History: dyslipidemia - Social History Occupation: Employed Full-time Lives: With Family Alcohol Use: None Substance Use Type: None Smoking Status (MU): Never Smoked Tobacco - Immunization History Most Recent Tetanus Shot: 2010 Review of Systems All Other Systems Reviewed And Are Negative: Yes Constitutional: Positive: Negative Skin: Positive: Negative Eyes: Positive: Negative ENT: Positive: Negative Respiratory: Positive: Negative Cardiovascular: Positive: Negative Gastrointestinal: Positive: Negative Genitourinary: Positive: Dysuria, Frequency, Urgency, Other - pelvic pain and lower back pain on urination Motor: Positive: Negative Neurovascular: Positive: Negative, Decreased Sensation Neurological: Positive: Negative Psychological: Positive: Negative Is Patient Immunocompromised?: No Physical Exam - Summary Physical Exam Summary: VITAL SIGNS: Reviewed. GENERAL: Patient is a well developed and nourished female who is sitting comfortable in the examining table. Patient is not in any acute respiratory distress. HEAD AND FACE: No signs of trauma. No ecchymosis, hematomas or skull depressions. No sinus tenderness. EYES: PERRLA, EOMI x 2, No injected conjunctiva, clear watery eyes, no nystagmus. No photophobia. EARS: Hearing grossly intact. Ear canals and tympanic membranes are within normal limits. MOUTH: pharynx with no erythema, no exudates,no palatal petechiae. no B/L tonsillar enlargement Uvula in midline. NECK: Supple, trachea is midline, no lymphadenopathy, no JVD, no carotid bruit, no c-spine tenderness, neck with full ROM. CHEST: Symmetric, no tenderness at palpation LUNGS: Clear to auscultation bilaterally. No wheezing or crackles. CVS: Regular rate and rhythm, S1 and S2 present, no murmurs or gallops appreciated. ABDOMEN: Soft, non-tender. No signs of distention. No rebound no guarding, and no masses palpated. Bowel sounds are normal. BACK:no scoliosis or lesions, non tender to palpation, No B/L CVA tenderness EXTREMITIES: FROM in all major joints, no edema, no cyanosis or clubbing. NEURO: Alert and oriented x 3. No acute neurological deficits. Speech is normal and follows commands. SKIN: Dry and warm Triage Information Reviewed: Yes Vital Signs: Initial Vital Signs Temp 97.1 F 05/16/19 15:16 Pulse 92 05/16/19 15:16 Resp 12 05/16/19 15:16 BP 130/90 05/16/19 15:16 Pulse Ox 99 05/16/19 15:16 Complaint Female Dx - Course Course Of Treatment: 28 y/o female presents to the urgent care c/o frequent and burning on urination since yesterday. This morning her frequency on urination increased associated w/ mild lower back pain and pelvic pain. Pain os urination is 2/10 and she hasn' t taken anything to alleviate symptoms. pt reports she has PMHX of recurrent UTI and urethral stricture and is being managed by Urologist Dr Rodriguez. Pt denies fever,flank pain, abdominal pain, vaginal discharge, GOULD, dizziness, N/V/ D. Hx of STD's or hematuria. She requests antibiotic treatment since if she allows symptoms to worsen, she will develop hematuria. LMP: 05/09/2019 w/ regular menstrual cycles. Hx obtained. Pt is hemodynamically stable, Vitals: WNL. UA and test ordered. UA results: negative. test: negative. However, Pt w/ Hx of recurrent UTI and being managed by Dr Ivy. Pt request antibiotic treatment if symptoms worsen since she thinks she has a UTI. Pt Rx Nitrofurantoin PO x 7 days. Pyridium 100mg PO TID x 2 days. Advised to increase fluid intake and take antibiotic only if symptoms worsen or urine culture returns positive. Urine sent for culture if any abnormality Pt will be notified for further treatment. Pt advised If symptoms do not improve to f/u w / her Urologist Dr Rodriguez for further management. Pt's BP is elevated today advised to decrease salt in diet, monitor BP and f/u with PCP for further management. Pt understood and agreed. Left the clinic ambulating. - Differential Dx/Diagnosis Differential Diagnosis/HQI/PQRI: Cervicitis, Ovarian Torsion, Pelvic Inflammatory Disease, , Renal Colic, Ureteral Stone, Urinary Tract Infection Provider Diagnosis: Dysuria, Elevated BP without diagnosis of hypertension Discharge ED - Sign-Out/Discharge Documenting (check all that apply): Patient Departure - D/C home All imaging exams completed and their final reports reviewed: No Studies - Discharge Plan Condition: Stable Disposition: HOME Prescriptions: Nitrofurantoin Macrocrystals* [Macrodantin 100 mg*] 100 mg PO BID #14 cap Phenazopyridine TAB* [Pyridium 100 mg TAB*] 100 mg PO TID #6 tab Patient Education Materials: Dysuria (ED) Referrals: Rene Rocha NP [Primary Care Provider] - 3 Days Sandro Rodriguez MD [Medical Doctor] - 3 Days Additional Instructions: 1- Please take Pyridium 100 mg PO TID x 2 days to alleviate urinary symptoms. However if symptoms worsen start taken Nitrofurantoin 100mg PO x 7 days as your request. Increase increase fluid intake. drink cranberry juice. 2-Urine sent for culture if any abnormality, you will be notified for further treatment. 3-If symptoms do not improve please f/u with your Urologist Dr Rodriguez for further management. 4- Your BP is elevated today. please decrease salt in your diet, monitor BP and if it continues to be elevated please f/u with your PCP for further management. - Billing Disposition and Condition Condition: STABLE Disposition: Home
== END 2019-05-16 16:18 | disposition home or self-care (01) ==
LOC: UCEAST 15:12
DX: R30.0 Dysuria (principal); R03.0 Elevated blood-pressure reading, without diagnosis of hypertension; Z87.440 Personal history of urinary (tract) infections; Z88.2 Allergy status to sulfonamides; Z91.09 Other allergy status, other than to drugs and biological substances; Z91.040 Latex allergy status
CPT/HCPCS: 81003; 84702; 87086; 99212; G0463